=== PATIENT | female | born 1975 | race African-American/Black ===

== ENCOUNTER → 2022-01-15 | Day surgery (SDC) | payer BC, OTHER ==
[~2022-01-15] MED LIST: DEXAMETHASONE SOD PHOS 10 MG/1 ML VIAL ONE; DEXAMETHASONE SOD PHOS INJ 4 MG/ML SDV ONE; FENTANYL CITRATE/PF 100MCG/2 ML INJ ONE; GLYCOPYRROLATE INJ 0.2 MG/ML VIAL ONE; LIDOCAINE 1% W/EPINEPHRINE 20 ML VIAL ONE; MIDAZOLAM HCL 2 MG/2 ML VIAL ONE; Morphine 10mg syringe 10 MG/ML INJ ONE; ONDANSETRON HCL INJ 2MG/ML 2ML 2 MG/ML VIAL ONE; POVIDONE IODINE 0.05% 0.05 % ML PO ONE; PROPOFOL IV EMULSION 10 MG/ML 20 ML VIAL ONE; SEVOFLURANE INHAL SOLN 250 ML PEN BTL ONE; VIT D PO
[2022-01-15 10:44] VITALS: BP 116/71
== END | disposition home or self-care (01) ==
LOC: OR 06:37
PROVIDERS: ATTEND Otolaryngology Otolaryngology/Facial Plastic Surgery
DX: E04.2 Nontoxic multinodular goiter (principal); Z83.49 Family history of other endocrine, nutritional and metabolic diseases
CPT/HCPCS: 60220; 88307; 88331; C1713; J1100; J2250; J2270; J2405; J2704; J3010; 88305